=== PATIENT | female | born 1970 | race Caucasian/White ===

== ENCOUNTER 2019-04-17 23:10 | Emergency (ER) | payer MEDICAID, OTHER ==
[2019-04-18] MEDS: KETOROLAC 30 MG INJ IM (00:48)
== END 2019-04-18 02:05 | disposition home or self-care (01) ==
LOC: FTE 23:10
DX: M54.12 Radiculopathy, cervical region (principal); F17.210 Nicotine dependence, cigarettes, uncomplicated
CPT/HCPCS: 81025; 93971; 96372; 99285-25